=== PATIENT | female | born 1995 | race Caucasian/White ===

== ENCOUNTER 2016-05-13 03:12 | Emergency (ER) | payer OTHER ==
[~2016-05-13] VITALS: Ht 175.3 cm; Wt 59.0 kg
[~2016-05-13 03:12] MED LIST: BENTYL10 MG PO; ZOFRAN4 M1 PO
[2016-05-13 03:57] VITALS: BP 126/59
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
== END 2016-05-13 05:27 ==
LOC: ERH 03:12
DX: S16.1XXA Strain of muscle, fascia and tendon at neck level, initial encounter (principal); V47.0XXA Car driver injured in collision with fixed or stationary object in nontraffic accident, initial encounter; Y92.410 Unspecified street and highway as the place of occurrence of the external cause